=== PATIENT | male | born 1985 | race Caucasian/White ===

== ENCOUNTER → 2017-06-22 | Outpatient (CLI) | payer BC ==
[~2017-06-22] MED LIST: ACET-1256 PO; DOXY100C2 PO; OMEGCAP2 PO
== END | disposition home or self-care (01) ==
LOC: C.PATHSPEC 14:45
PROVIDERS: ATTEND Urology
DX: Z30.2 Encounter for sterilization (principal)

== ENCOUNTER 2017-07-11 20:45 | Emergency (ER) | payer BC ==
[~2017-07-11] VITALS: Ht 182.9 cm; Wt 85.9 kg
[~2017-07-11 20:45] MED LIST changes: -DOXY100C2 PO; -OMEGCAP2 PO
[2017-07-11 20:49] VITALS: Ht 182.9 cm; Wt 85.9 kg
[2017-07-11] MEDS ORDERED: SODIUM CHLORIDE 0.9% 1000ML 2,000 ML IV STA (21:27)
[2017-07-11] MEDS ORDERED: METOCLOPRAMIDE HCL INJ 5 MG/ML 2 ML VIAL IV STA (21:27)
[2017-07-11] MEDS ORDERED: ACETAMINOPHEN 500 MG TAB PO STA (21:27)
[2017-07-11] MEDS ORDERED: SODIUM CHLORIDE 0.9% 1000ML 1,000 ML IV STA (21:27)
[2017-07-11] MEDS ORDERED: DiphenhydrAMINE HCL 50 MG/ML VIAL IV STA (21:27)
[2017-07-11] MEDS ORDERED: OMEGCAP2 PO (21:55)
[2017-07-11 22:04] LABS: BASO % 0.7 %; BASO ABS # 0.08 K/uL (0-0.2); COMPLETE YES; IG% 0.3 %; LYMPH % 8.6 %; LYMPH ABS # 1.01 K/uL (1.2-3.4); MEAN CELL VOLUME 86.8 fL (80-100); MEAN CORPUSCULAR HGB CONC 35.7 g/dl (32-36); MEAN PLATELET VOLUME 9.9 fL (7.4-10.4); MONO % 9.6 %; NEUT % 80.8 %; PLATELET COUNT 193 K/uL (130-400); RED BLOOD COUNT 5.07 M/uL (4.7-6.1); WHITE BLOOD COUNT 11.77 K/uL (4.8-10.8)
--- NOTE | 2017-07-11 22:05 | DIAGNOSTIC IMAGING REPORT ---
SINGLE VIEW CHEST CLINICAL HISTORY: Fever. FINDINGS: An AP, portable, upright chest radiograph is compared to study dated 10/16/2016. The examination is degraded by portable technique and patient rotation. The cardiomediastinal silhouette is unremarkable. The lungs and pleural spaces are clear. No pneumothorax is seen. The bony thorax is grossly intact. IMPRESSION: No active disease in the chest. Electronically signed by: Luigi Pemberton M.D. 07/11/2017 10:04 PM Dictated Date/Time: 07/11/2017 10:03 PM
[2017-07-11 22:18] LABS: INR 1.1 (0.9-1.1); PARTIAL THROMBOPLASTIN RATIO 1.3; PROTHROMBIN TIME (PATIENT) 12.3 SECONDS (9.0-12.0)
[2017-07-11 22:20] LABS: BUN/CREATININE RATIO 8.6 (10-20); CALCIUM 9.1 mg/dl (8.5-10.1); CREATININE 1.4 mg/dl (0.60-1.40); POTASSIUM 3.5 mmol/L (3.5-5.1)
[2017-07-11 22:23] LABS: ALB/GLOB RATIO 1.2 (0.9-2)
[2017-07-11 22:30] VITALS: O2SAT 100
[2017-07-11 22:54] LABS: LYME DISEASE AB IGG NEG (NEG)
[2017-07-11 22:55] LABS: LYME DISEASE AB IGM EQUIVOCAL (NEG)
[2017-07-11 23:01] VITALS: BP 148/79; PULSE 111; TEMP 39.1; O2SAT 96
[2017-07-11] MEDS ORDERED: IBUPROFEN 800 MG TAB PO STA (23:06)
[2017-07-11] MEDS ORDERED: DOXY100C2 PO (23:10)
[2017-07-11] MEDS ORDERED: DOXYCYCLINE HYCLATE 100 MG CAP PO ONE (23:15)
--- NOTE | 2017-07-12 04:59 | EMERGENCY ROOM VISIT NOTE ---
History First contact with patient: 21:21 Chief Complaint: HEADACHE Stated Complaint: HEADACHE,JOINT HURT History of Present Illness The patient is a 31 year old male who presents to the Emergency Room with complaints of fever, chills, myalgias and arthralgias with slight headache for the past day. Patient states he's had Lyme's twice now and feels as if he has a recurrence of this. He had Lymes 6 months ago and a year and a half ago. He has not seen infectious disease for this. Patient is unsure of any new tick bites. Patient denies chest pain, dyspnea, cough, congestion, abdominal pain, vomiting, diarrhea, neck stiffness, sore throat, sinus pain or congestion. He is time by mouth fluids and has a decreased appetite. Review of Systems See HPI for pertinent positives & negatives. A total of 10 systems reviewed and were otherwise negative. Past Medical/Surgical History Medical Problems: (1) Lyme disease (2) No known health problems Surgical Problems: (1) History of appendectomy Family History Hypertension Social History Smoking Status: Never Smoker Alcohol Use: none Drug Use: none Marital Status: Housing Status: lives with family Occupation Status: employed Current/Historical Medications Scheduled Doxycycline Hyclate (Vibramycin), 100 MG PO BID [place]jou-3 Fatty Acids (Fish Oil), 1 CAP PO DAILY Physical Exam Vital Signs Date Time Temp Pulse Resp B/P (MAP) Pulse Ox O2 Delivery O2 Flow Rate FiO2 07/11/17 23:01 39.1 111 18 148/79 96 Room Air 07/11/17 22:30 100 Room Air 07/11/17 22:27 127 20 106/69 99 Room Air 07/11/17 20:49 38.1 117 19 133/88 95 Room Air Pain Rating (0-10): 0 Physical Exam VITALS: Vitals are noted on the nurse's note and reviewed by myself. Vital signs febrile GENERAL: Pleasant male, in no acute distress, nondiaphoretic, well-developed well-nourished. SKIN: The skin was without rashes, erythema, edema, or bruising. There is no tenting of the skin. Capillary reflex less than 2 seconds. HEAD: Normocephalic atraumatic. EARS: External auditory canals clear, tympanic membranes pearly quintana without erythema or effusion bilaterally. EYES: Pupils equal round and reactive to light and accommodation. Conjunctivae without injection, sclerae without icterus. Extraocular movements intact. NOSE: Patent, turbinates without inflammation or discharge. No sinus tenderness. MOUTH: Mucous membranes mildly dry. Pharynx without erythema or exudate. Uvula midline. Airway patent. Tongue does not deviate. NECK: Supple without nuchal rigidity. No lymphadenopathy. No thyromegaly. Cervical spine is nontender. No JVD. No meningeal signs HEART: Regular rate and rhythm without murmurs gallops or rubs. LUNGS: Clear to auscultation bilaterally without wheezes, rales or rhonchi. No dullness to percussion. No retractions or accessory muscle use. ABDOMEN: Positive bowel sounds x 4. Normal tympanic percussion. Soft, nontender, without masses or organomegaly. Hair sign negative. No guarding or rebound tenderness. MUSCULOSKELETAL: No muscle atrophy, erythema, or edema noted. NEURO: Patient was alert and oriented to person place and time. Normal sensation to light and sharp touch. No focal neurological deficits. Medical Decision & Procedures Laboratory Results 07/11/17 21:50 Red Blood Count 5.07, Mean Corpuscular Volume 86.8, Mean Corpuscular Hemoglobin 31.0, Mean Corpuscular Hemoglobin Concent 35.7, Mean Platelet Volume 9.9, Neutrophils (%) (Auto) 80.8, Lymphocytes (%) (Auto) 8.6, Monocytes (%) (Auto) 9.6, Eosinophils (%) (Auto) 0.0, Basophils (%) (Auto) 0.7, Neutrophils # (Auto) 9.52, Lymphocytes # (Auto) 1.01, Monocytes # (Auto) 1.13, Eosinophils # (Auto) 0.00, Basophils # (Auto) 0.08 07/11/17 21:50 Test 07/11/17 21:47 07/11/17 21:50 Bedside Lactic Acid Venous 0.56 mmol/L (0.90-1.70) White Blood Count 11.77 K/uL (4.8-10.8) Red Blood Count 5.07 M/uL (4.7-6.1) Hemoglobin 15.7 g/dL (14.0-18.0) Hematocrit 44.0 % (42-52) Mean Corpuscular Volume 86.8 fL (80-100) Mean Corpuscular Hemoglobin 31.0 pg (25-34) Mean Corpuscular Hemoglobin Concent 35.7 g/dl (32-36) Platelet Count 193 K/uL (130-400) Mean Platelet Volume 9.9 fL (7.4-10.4) Neutrophils (%) (Auto) 80.8 % Lymphocytes (%) (Auto) 8.6 % Monocytes (%) (Auto) 9.6 % Eosinophils (%) (Auto) 0.0 % Basophils (%) (Auto) 0.7 % Neutrophils # (Auto) 9.52 K/uL (1.4-6.5) Lymphocytes # (Auto) 1.01 K/uL (1.2-3.4) Monocytes # (Auto) 1.13 K/uL (0.11-0.59) Eosinophils # (Auto) 0.00 K/uL (0-0.5) Basophils # (Auto) 0.08 K/uL (0-0.2) RDW Standard Deviation 41.3 fL (36.4-46.3) RDW Coefficient of Variation 13.0 % (11.5-14.5) Immature Granulocyte % (Auto) 0.3 % Immature Granulocyte # (Auto) 0.03 K/uL (0.00-0.02) Prothrombin Time 12.3 SECONDS (9.0-12.0) Prothromb Time International Ratio 1.1 (0.9-1.1) Activated Partial Thromboplast Time 33.1 SECONDS (21.0-31.0) Partial Thromboplastin Ratio 1.3 Anion Gap 9.0 mmol/L (3-11) Est Creatinine Clear Calc Drug Dose 84.7 ml/min Estimated GFR () 77.6 Estimated GFR (Non- 66.9 BUN/Creatinine Ratio 8.6 (10-20) Calcium Level 9.1 mg/dl (8.5-10.1) Total Bilirubin 0.5 mg/dl (0.2-1) Aspartate Amino Transf (AST/SGOT) 25 U/L (15-37) Alanine Aminotransferase (ALT/SGPT) 19 U/L (12-78) Alkaline Phosphatase 82 U/L (45-117) Total Protein 7.5 gm/dl (6.4-8.2) Albumin 4.1 gm/dl (3.4-5.0) Globulin 3.4 gm/dl (2.5-4.0) Albumin/Globulin Ratio 1.2 (0.9-2) Lyme Disease IgG Antibody NEG (NEG) Medications Administered Medications (Trade) Dose Ordered Sig/Melvina Route Start Time Stop Time Status Last Admin Dose Admin Sodium Chloride 1,000 ml @ 125 mls/hr Q8H STAT IV 07/11/17 21:27 07/11/17 23:45 DC 07/11/17 23:00 125 MLS/HR Sodium Chloride 2,000 ml @ 999 mls/hr Q2H1M STAT IV 07/11/17 21:27 07/11/17 23:27 DC 07/11/17 22:22 999 MLS/HR Metoclopramide HCl (Reglan Inj) 10 mg NOW STAT IV 07/11/17 21:27 07/11/17 21:34 DC 07/11/17 22:23 10 MG Diphenhydramine HCl (Benadryl Inj) 12.5 mg NOW STAT IV 07/11/17 21:27 07/11/17 21:34 DC 07/11/17 22:22 12.5 MG Acetaminophen (Tylenol Tab) 1,000 mg NOW STAT PO 07/11/17 21:27 07/11/17 21:34 DC 07/11/17 22:23 1,000 MG Ibuprofen (Motrin Tab) 800 mg NOW STAT PO 07/11/17 23:06 07/11/17 23:07 DC 07/11/17 23:11 800 MG Doxycycline Hyclate (Vibramycin Cap) 100 mg ONE ONCE PO 07/11/17 23:15 07/11/17 23:16 DC 07/11/17 23:11 100 MG ED Course Prior records/ancillary studies reviewed. Triage Nursing notes reviewed. Additional history obtained from family The patient's history was concerning for fever. Differential diagnosis: Etiologies such as viral syndrome, lymes, otitis, pharyngitis, pneumonia, influenza, meningitis, urinary tract infection, sepsis, bacteremia, as well as others were entertained. Physical examination: Patient is alert, interactive and tolerating fluids ER treatment provided: IV fluids, Tylenol, Motrin On reassessment the patient felt better. Diagnostics interpreted by me: The labs revealed positive Lyme's IgM, negative lactic acid Imaging studies: SINGLE VIEW CHEST CLINICAL HISTORY: Fever. FINDINGS: An AP, portable, upright chest radiograph is compared to study dated 10/16/2016. The examination is degraded by portable technique and patient rotation. The cardiomediastinal silhouette is unremarkable. The lungs and pleural spaces are clear. No pneumothorax is seen. The bony thorax is grossly intact. IMPRESSION: No active disease in the chest. Electronically signed by: Luigi Pemberton M.D. This appears to be consistent with recurrence of lymes. Patient states symptoms feel similar. Lyme's IgM was positive. He was advised to follow-up with infectious disease. He was informed that he must see his family care DrTammy for this referral. This is a recurrent problem for him. Patient is advised to take antibiotics as directed and to follow-up with family care in a few days or here in the ER sooner for high fevers, lethargy, neck stiffness, confusion, worsening signs or symptoms or as needed. Patient had no signs of meningitis. He is well-appearing. He was neurovascularly and neurologically intact.. By the evaluation outlined above emergent etiologies such as otitis, pharyngitis, pneumonia, meningitis, urinary tract infection, sepsis, bacteremia, as well as others were deemed relatively unlikely. The pt informed about the findings as listed above. All questions were answered and pleased with the treatment. Return instructions were outlined and the patient was discharged in stable condition. Outpatient prescription management: Doxycycline Referral: The patient was referred back to their primary care physician for follow-up in 2 to 3 days for a recheck of the current condition. Case reviewed with my attending Medical Decision As above Medication Reconcilliation Current Medication List: was personally reviewed by me Blood Pressure Screening Patient's blood pressure: Elevated blood pressure Blood pressure disposition: Elevated BP felt to be situational Impression Primary Impression: Lyme disease Departure Information Dispostion Home / Self-Care Condition GOOD Prescriptions Doxycycline Hyclate (VIBRAMYCIN) 100 Mg Cap 100 MG PO BID for 28 Days, #56 CAP Prov: Natasha Rivers .ESTELA 07/11/17 Forms HOME CARE DOCUMENTATION FORM, IMPORTANT VISIT INFORMATION Patient Instructions [facility], ED Lyme Disease Additional Instructions Doxycycline 100mg: Take one pill twice daily for 28 days for your infection. Take with food, but avoid dairy. Avoid prolonged sun exposure since this medication makes you temporarily more susceptible to sunburns. All antibiotics can cause diarrhea. If this occurs and you feel worse or it does not resolve in 1-2 days follow up with your doctor or return to the Emergency Department as this could be signs of serious underlying problems. Any medication can cause an allergic reaction, stop the pills immediately and return to the ER for rash, hives, breathing difficulties, or swelling. Acetaminophen(Tylenol) may be used for fever or pain. Use 1000mg every six hours as needed. Avoid using more than 3000mg in a 24 hour period. AND/OR Ibuprofen(Motrin, Advil) may be used for fever or pain. Use 600mg every six hours as needed. Take with food. Avoid using more than 2400mg in a 24 hour period. Do not use 2400mg per day for more than three consecutive days without physician direction. Prolonged inappropriate use can lead to stomach upset or ulcers. Controlling your fever with Tylenol and Ibuprofen as above will make you feel better. Rest and drink plenty of fluids. Avoid strenuous activity until your symptoms resolve and your breathing returns to normal. Continue current medications. Return to the ER for chest pain, difficulty breathing, persistent fevers, vomiting, worsening of your condition, or as needed. Follow-up with family care DrTammy in 2-3 days. Recommend that you follow up with infectious disease for your recurrent Lyme's disease.
[2017-07-18 09:53] LABS: 18KDIGG BAND REACTIVE (NONREACTIVE); 23KDIGG BAND NONREACTIVE (NONREACTIVE); 23KDIGM BAND REACTIVE (NONREACTIVE); 28KDIGG BAND NONREACTIVE (NONREACTIVE); 30KDIGG BAND REACTIVE (NONREACTIVE); 39KDIGG BAND NONREACTIVE (NONREACTIVE); 39KDIGM BAND NONREACTIVE (NONREACTIVE); 41KDIGG BAND REACTIVE (NONREACTIVE); 41KDIGM BAND REACTIVE (NONREACTIVE); 45KDIGG BAND NONREACTIVE (NONREACTIVE); 58KDIGG BAND NONREACTIVE (NONREACTIVE); 66KDIGG BAND NONREACTIVE (NONREACTIVE); 93KDIGG BAND NONREACTIVE (NONREACTIVE)
== END 2017-07-11 23:26 | disposition home or self-care (01) ==
LOC: C.EDB 20:46
DX: A69.20 Lyme disease, unspecified (principal); Z98.890 Other specified postprocedural states; Z79.899 Other long term (current) drug therapy; Z82.49 Family history of ischemic heart disease and other diseases of the circulatory system